=== PATIENT | female | born 1990 | race Two or more races ===

== ENCOUNTER 2021-05-12 13:27 | Emergency (ER) | payer MEDICAID, OTHER ==
[~2021-05-12] VITALS: Ht 152.4 cm; Wt 59.0 kg
[2021-05-12 13:47] VITALS: BP 132/90
== END 2021-05-12 16:33 | disposition left against medical advice (07) ==
LOC: ER 13:27
DX: R21 Rash and other nonspecific skin eruption (principal); Z53.21 Procedure and treatment not carried out due to patient leaving prior to being seen by health care provider